=== PATIENT | female | born 1995 | race Caucasian/White ===

== ENCOUNTER 2021-04-06 08:42 | Emergency (ER) | payer OTHER ==
[2021-04-06 21:35] LABS: SARS-CoV-2 PCR by NAA Not Detected (NotDetected)
== END 2021-04-06 09:35 | disposition home or self-care (01) ==
LOC: MADERS 08:42
DX: J02.9 Acute pharyngitis, unspecified (principal); J42 Unspecified chronic bronchitis; Z79.899 Other long term (current) drug therapy
CPT/HCPCS: 87081; 87430; 87635; 99283; U0003; U0005

== ENCOUNTER 2021-12-18 11:48 | Emergency (ER) | payer OTHER ==
[2021-12-18] MEDS ORDERED: Lidocaine 1% (PF) 30 ML VIAL ONE (12:34)
[2021-12-18] MEDS ORDERED: cefTRIAXone\\ROCEPHIN 1 GM VIAL ONE (12:34)
== END 2021-12-18 13:00 | disposition home or self-care (01) ==
LOC: MADERS 11:48
DX: J31.0 Chronic rhinitis (principal)
CPT/HCPCS: 96372; 99283; J0696; J2001

== ENCOUNTER 2023-09-22 01:33 | Emergency (ER) | payer OTHER ==
[2023-09-22 01:46] LABS: #Basophils 0.1 thou/uL (0.0-0.2); #Eosinphils 0.1 thou/uL (0.0-0.7); #Lymphocytes 2.6 thou/uL (1.20-3.40); #Monocytes 0.7 thou/uL (0.11-0.59); #Neutrophils 7.6 thou/uL (1.40-6.50); %Eosinophils 0.7 % (0.0-10.0); %Lymphocytes 23.2 % (21.0-51.0); %Monocytes 6.6 % (0.0-10.0); %Neutrophils 68.4 % (42.0-75.0); Hematocrit 41.3 % (36.0-47.0); Hemoglobin 14.2 g/dL (12.0-16.0); Mean Corpuscular HGB CONC 34.4 g/dL (32.0-36.0); Mean Corpuscular Hemoglobin 29.9 pg (27.0-31.0); Mean Platelet Volume 6.4 fL (7.4-10.4); Platelet Count 332 10x3/uL (130-400); RBC Distribution Width 11.8 % (11.5-14.5); Red Blood Cell (RBC) Count 4.75 mill/uL (4.20-5.40); White Blood Cell (WBC) Count 11.2 10x3/uL (4.8-10.8)
[2023-09-22] MEDS ORDERED: Lactated Ringer's 1,000 ML ONE (01:52)
[2023-09-22 01:57] LABS: BHCG - Serum Negative (NEGATIVE); Pregs Control Background? CLEAR/WHITE (CLR/WHITE); Pregs Control Bar Appear? YES (CONTROL BAR)
[2023-09-22 02:04] LABS: Base Excess-Venous 1.4 mmol/L (-2.0 to 3.0); Bicarbonate (HCO3v) 24.9 mmol/L (22.0-28.0); CO2 Tension (PvCO2) 35.1 mmHg (42.0-51.0); Calcium, Ionized 1.14 mmol/L (1.15-1.33); Chloride 104 mmol/L (98-107); Hemoglobin - Calc 13.8 g/dL (12.0-16.0); Potassium 3.2 mmol/L (3.5-5.1); Sodium 141 mmol/L (138-145); vO2 Saturation-calc 99.7 % (60.0-85.0)
[2023-09-22 02:09] LABS: ALT (SGPT) 12 U/L (8-55); AST (SGOT) 14 U/L (5-34); Albumin 4.4 g/dL (3.5-5.0); Alkaline Phosphatase 51 U/L (40-110); Anion Gap 17 mmol/L (10-20); BUN (Urea Nitrogen) Less than 4 mg/dL (7.0-18.7); Bilirubin, Total 0.4 mg/dL (0.2-1.2); CK (CPK) 77 U/L (29-168); Calc. Creatinine Clearance 0 mL/min (70-130); Calcium 9.7 mg/dL (7.8-10.44); Carbon Dioxide 23 mmol/L (22-29); Chloride 103 mmol/L (98-107); Estimated GFR 109; Globulin 2.7 g/dL (2.4-3.5); Glucose 102 mg/dL (70-105); Potassium 3.3 mmol/L (3.5-5.1); Protein, Total 7.1 g/dL (6.0-8.3); Sodium 140 mmol/L (136-145); Troponin I Less than 0.010 ng/mL (< 0.028)
[2023-09-22 02:11] LABS: Acetaminophen Less than 10 mcg/mL (10.0-30.0); Alcohol 64.9 mg/dL (Less than 10); Magnesium 1.8 mg/dL (1.6-2.6); Salicylate Less than 8.0 mg/dL (15.0-30.0)
[2023-09-22 02:18] LABS: Bilirubin Negative (Negative); Blood, Urine Negative (Negative); Clarity Clear (Clear); Glucose, Urine (Dipstick) Negative (Negative); Ketone, Urine Negative (Negative); Leukocyte Negative (Negative); Nitrite Negative (Negative); Protein, Urine (Dipstick) Negative (Neg-Trace); Specific Gravity, Urine 1.015 (1.005-1.030); Urobilinogen 0.2 mg/dL (Less than 2)
[2023-09-22 02:21] LABS: CAUTI Indications for Culture Alt mental st,lethar; RBC/HPF None Seen HPF (0-3); WBC/HPF 0-3 HPF (0-3)
[2023-09-22 02:22] LABS: Urine Culture Reflex No No
[2023-09-22] MEDS ORDERED: Potassium Chloride 20 MEQ TAB ONE (02:22)
[2023-09-22] MEDS ORDERED: Thiamine HCl 200 MG/2 ML VIAL ONE (02:22)
[2023-09-22 02:26] LABS: Amphetamine Detected (NotDetected); Barbiturates Screen Not Detected (NotDetected); Benzodiazepine Screen Detected (NotDetected); Cocaine Metabolite Screen Not Detected (NotDetected); Methadone Not Detected (NotDetected); Methamphetamine Detected (NotDetected); Opiate Screen Not Detected (NotDetected); Oxycodone Screen Not Detected (NotDetected); Phencyclidine (PCP) Not Detected (NotDetected); THC/Cannabinoid Screen Detected (NotDetected); Tricyclic Screen Not Detected (NotDetected)
[2023-09-22] MEDS ORDERED: Acetaminophen 325 MG TAB ONE (02:37)
[2023-09-22] MEDS ORDERED: Ketorolac Tromethamine 30 MG/ML VIAL ONE (02:37)
[2023-09-22] MEDS ORDERED: Lactated Ringer's 1,000 ML BAG ONE (06:22)
== END 2023-09-22 03:35 | disposition home or self-care (01) ==
LOC: MADERS 01:33
DX: F10.129 Alcohol abuse with intoxication, unspecified (principal); G93.40 Encephalopathy, unspecified; E87.6 Hypokalemia; F12.90 Cannabis use, unspecified, uncomplicated; F19.90 Other psychoactive substance use, unspecified, uncomplicated; R00.0 Tachycardia, unspecified; J42 Unspecified chronic bronchitis; Y90.3 Blood alcohol level of 60-79 mg/100 ml
CPT/HCPCS: 36416; 80053; 80306; 80307; 81001; 82330; 82550; 82803; 83735; 84443; 84484; 84703; 85025; 93005; 94760; 96361; 96374; 96375; J1885; J3411; J7120